=== PATIENT | female | born 1965 | race Caucasian/White ===

== ENCOUNTER 2016-10-15 13:17 | Emergency (ER) | payer OTHER ==
[~2016-10-15] VITALS: Ht 170.2 cm; Wt 54.4 kg
[2016-10-15 14:42] LABS: ABSOLUTE BASOPHIL COUNT 0 /CUMM (0.0-0.2); ABSOLUTE EOSINOPHIL COUNT 0 /CUMM (0.0-0.7); ABSOLUTE GRANULOCYTE CT 3.6 /CUMM (1.4-6.5); ABSOLUTE LYMPH COUNT 1.2 /CUMM (1.2-3.4); ABSOLUTE MONOCYTE COUNT 0.4 /CUMM (0.10-0.60); BASOPHIL % 0.7 % (0.0-2.0); EOSINOPHIL % 0.7 % (0-5); MEAN CORPUSCULAR HGB CONC 33.6 G/DL (33.0-37.0); MEAN CORPUSCULAR VOLUME 104.3 FL (81.0-99.0); MEAN PLATELET VOLUME 6.9 FL (7.4-10.4); PLATELET COUNT 187 /CUMM (130-400); RBC DISTRIBUTION WIDTH 13.9 % (11.5-14.5); RED BLOOD CELL CT 3.64 /CUMM (4.20-5.40); WHITE BLOOD CELL COUNT 5.2 /CUMM (4.8-10.8)
[2016-10-15] MEDS ORDERED: LAMOTRIGINE150 M1 PO (17:07)
[2016-10-15] MEDS ORDERED: GABAPENTIN300 M2 PO (17:07)
[2016-10-15] MEDS ORDERED: NALTREXONE HCL50 M1 PO (17:08)
[2016-10-15] MEDS ORDERED: HYDROXYZINE PAM50 M1 (17:08)
[2016-10-15] MEDS ORDERED: MULTI-DAY VITA1 EACH PO (17:08)
[2016-10-15] MEDS ORDERED: CLONIDINE HCL0.1 MG (17:09)
--- NOTE | 2016-10-15 18:47 | ED GENERAL ADULT ---
See Addendum History of Present Illness General Chief Complaint: ETOH/Drug Related Complaint Stated Complaint: REQUESTING DETOX Source: patient Exam Limitations: no limitations Vital Signs & Intake/Output Vital Signs & Intake/Output Vital Signs Date Time Temp Pulse Resp B/P B/P Pulse O2 O2 Flow FiO2 Mean Ox Delivery Rate 10/17 923 98.2 70 18 132/71 10/16 0924 98.2 70 18 132/71 100 Room Air 10/16 0644 98.1 65 16 135/73 100 Room Air 10/16 0442 97.2 82 18 138/70 97 Room Air 10/16 0441 97.2 82 18 138/70 10/15 2355 97.8 69 18 1317/75 10/15 2355 97.8 69 18 137/75 97 Room Air 10/15 2100 97.3 75 18 139/87 10/15 2056 97.3 75 18 139/87 98 Room Air 10/15 1937 98.3 70 22 140/90 10/15 1936 98.3 70 22 140/90 Room Air 10/15 1808 98.6 79 16 139/76 10/15 1734 98.6 79 16 139/76 96 Room Air 10/15 1525 98.2 65 16 146/83 10/15 1522 98.2 65 16 146/83 100 Room Air 10/15 1324 98.8 80 18 158/95 99 Room Air ED Intake and Output 10/16 0000 10/15 1200 Intake Total 1000 Output Total Balance 1000 Intake, IV 1000 Patient 120 lb Weight Allergies Coded Allergies: No Known Allergies (10/15/16) Reconcile Medications Clonidine HCl (Unknown Strength) TABLET (Unknown Dose) UNKNOWN (Reported) Gabapentin 300 MG CAPSULE 1 CAP PO TID ANTI-SEIZURES (Reported) Hydroxyzine Pamoate (Unknown Strength) CAPSULE (Unknown Dose) UNKNOWN ( Reported) Lamotrigine 150 MG TABLET 1 TAB PO DAILY MENTAL HEALTH (Reported) Multivitamin (Multi-Day Vitamins) 1 EACH TABLET 1 TAB PO DAILY SUPPLEMENT ( Reported) Naltrexone HCl 50 MG TABLET 1 TAB PO SI SUBSTANCE ABUSE (Reported) Triage Note: 51 YEAR OLD FEMALE SENT TO ER BY [facility] IN [facility] TO HAVE MEDICAL CLEARANCE. PT STATES THAT SHE WAS TOLD THAT WE WILL WATCH HER OVER NIGHT AND THEY WILL PICK HER UP IN THE AM. PATIENTS LAST DETOX WAS ABOUT 1 MONTH AGO AND WAS THERE FOR 21 DAYS AND SHE STARTED TO DRINK RIGHT AFTER DISCHARGE. DENIES HISTORY OF SEIZURES/SI/HI OR DRUG USE. LAST DRINK WAS WINE AROUND 0600 THIS AM. STATES THAT WHEN SHE DOESN'T DRINK SHE FEELS SHAKEY. COMPLAINS OF SLIGHT NAUSEA AT THIS TIME. PT BROUGHT TO ER BY HER AA SPONSOR Triage Nurses Notes Reviewed? yes HPI: 51 yo F PMH EtOH abuse presenting for detox. Recently admitted for detox, released at the end of 08/2016, quickly relapsed, since that time she's been drinking several bottles of wine and unclear amount of hard alcohol daily, last drink this morning at 6:00. Patient initially presented to outpatient detox center, intoxicated, concern for complicated withdrawal with high benzodiazepine requirements, sent to ED for evaluation and further management. On arrival patient endorsing mild anxiety and tremors, denies chest pain, shortness of breath, palpitations. Denies other illicit drug use. Denies SI, plan, intent. Endorses history of tremors with alcohol cessation, denies prior alcohol withdrawal seizures. (JAYLON FLYNN MD) Past History Travel History Traveled to [place] past 21 day No Medical History Any Pertinent Medical History? see below for history Neurological: NONE EENT: NONE Cardiovascular: NONE Respiratory: NONE Gastrointestinal: NONE Hepatic: NONE Renal: NONE Musculoskeletal: NONE Psychiatric: alcohol dependence, anxiety, depression Endocrine: NONE Blood Disorders: NONE Cancer(s): NONE PUBLIC HEALTH DOCTOR/Reproductive: NONE Surgical History Surgical History: none Psychosocial History What is your primary language Kyrgyz Tobacco Use: Never used ETOH Use: alcoholic Illicit Drug Use: denies illicit drug use Family History Hx Contributory? Yes (JAYLON FLYNN MD) Review of Systems Review of Systems Constitutional: Reports: malaise, weakness. EENTM: Reports: no symptoms. Respiratory: Reports: no symptoms. Cardiovascular: Reports: no symptoms. GI: Reports: nausea. Denies: abdominal pain, diarrhea, melena, vomiting. Genitourinary: Reports: no symptoms. Musculoskeletal: Reports: no symptoms. Skin: Reports: no symptoms. Neurological/Psychological: Reports: anxiety. Hematologic/Endocrine: Reports: no symptoms. Immunologic/Allergic: Reports: no symptoms. All Other Systems: Reviewed and Negative (JAYLON FLYNN MD) Physical Exam Physical Exam General Appearance: well developed/nourished, no apparent distress, alert, awake , anxious Head: atraumatic, normal appearance Eyes: Bilateral: normal appearance. Ears, Nose, Throat: normal pharynx, normal ENT inspection Neck: normal inspection, full range of motion Respiratory: normal breath sounds, no respiratory distress, quiet respiration Cardiovascular: regular rate/rhythm, normal peripheral pulses Gastrointestinal: normal bowel sounds, soft, non-tender Back: normal inspection Comments: Neurologic: Tremors of bilateral upper extremities, tongue fasciculations Psychiatric: Endorses anxiety, denies suicidal ideation Core Measures ACS in differential dx? No CVA/TIA Diagnosis: No Severe Sepsis Present: No Septic Shock Present: No (GEE FABIAN,JAYLON) Progress Differential Diagnoses I considered the following diagnoses in my evaluation of the patient: [alcohol intoxication, alcohol withdrawal, dehydration] Plan of Care: Orders Procedure Date/time Status Regular Diet 10/15 D Active CASE MANAGEMENT CONSULT 10/15 1643 Active URINE DRUG SCREEN FOR ER ONLY 10/15 1457 Complete Pathway - chart 10/15 1411 Active CIWA 10/15 1411 Active MAGNESIUM 10/15 1411 Complete ETHANOL 10/15 1411 Complete COMPREHENSIVE METABOLIC PANEL 10/15 1411 Complete CBC WITHOUT DIFFERENTIAL 10/15 1411 Complete Current Medications Sig/Flora Start time Last Medication Dose Stop Time Status Admin Lorazepam 2 MG Q2P PRN 10/15 1415 AC 10/15 (Ativan) 1949 Lorazepam 1 MG Q2P PRN 10/15 1415 AC 10/16 (Ativan) 0441 Folic Acid 1 MG DAILY 10/15 1411 UNVr 10/15 (Folic Acid) 10/17 1001 1500 Multivitamins 1 TAB DAILY 10/15 1411 UNVr 10/15 (Theragran Vitamins) 1500 Thiamine HCl 100 MG DAILY 10/15 1411 UNVr 10/15 (Vitamin B1) 10/17 1001 1500 Laboratory Tests 10/15/16 1458: Urine Opiates Screen < 100.00, Methadone Screen < 40, Barbiturate Screen < 60, Ur Phencyclidine Scrn < 6.00, Amphetamines Screen < 100, U Benzodiazepines Scrn < 85, Urine Cocaine Screen < 50, Urine Cannabis Screen < 5.00 10/15/16 1436: Anion Gap 14, Estimated GFR > 60, BUN/Creatinine Ratio 26.7 H, Glucose 91, Calcium 8.7, Magnesium 1.7, Total Bilirubin 0.6, AST 38 H, ALT 29, Alkaline Phosphatase 56, Total Protein 7.0, Albumin 4.5, Globulin 2.5, Albumin/Globulin Ratio 1.8, CBC w Diff NO MAN DIFF REQ, RBC 3.64 L, MCV 104.3 H, MCH 35.0 H, RDW 13.9, MPV 6.9 L, Gran % 69.0, Lymphocytes % 22.4, Monocytes % 7.2, Eosinophils % 0.7, Basophils % 0.7, Absolute Granulocytes 3.6, Absolute Lymphocytes 1.2, Absolute Monocytes 0.4, Absolute Eosinophils 0, Absolute Basophils 0, PUBS MCHC 33.6, Serum Alcohol 94.0 Physician MDM: 51 yo F PMH EtOH abuse presenting for detox. On arrival VSS, HR and BP normal, tremors on exam. CBC, CMP, lipase remarkable for mild AST elevation, otherwise normal. 1 L normal saline, 2 mg IV Ativan given. CIWA protocol ordered, PO Ativan based. Plan to monitor emergency department overnight for significant withdrawal symptoms, if low CIWA scores and low benzodiazepine requirements, plan for referral to outpatient detox tomorrow. The plan of care was discussed with the patient and who expressed agreement and understanding. (JAYLON FLYNN MD) Initial ED EKG: normal sinus rhythm (JAYLON FLYNN MD) Differential Diagnoses I considered the following diagnoses in my evaluation of the patient: Comments: 10/16/2016 7:16:39 AM patient signed out to me by Dr. 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 10/16/2016 9:44:03 AM patient's last CIWA score is 0. I feel she is stable for treatment via [facility]. (TAY FITCH MD) Departure Departure Clinical Impression Primary Impression: Alcohol withdrawal Qualifiers: Complication of substance-induced condition: uncomplicated Qualified Code: F10.230 - Alcohol dependence with withdrawal, uncomplicated Referrals: PATIENT HAS NO PRIMARY CARE DR (PCP/Family) Departure Forms: Customer Survey General Discharge Information (JAYLON FLYNN MD) Departure Comments 10/16/16 3 AM The patient was signed out to me by Dr. Reyes. She will have her CIWA scores reevaluated during the morning. If stable she will be discharged and may go to [facility]. (TAY CARMEN DO) Departure Disposition: ACUTE REHAB FACILITY Condition: Stable Additional Instructions: Report immediately to [facility]. (TAY FITCH MD) PA/ETHYLBENZENE CRACKING SUPERVISOR Co-Sign Statement Statement: ED Attending supervision documentation- [] I saw and evaluated the patient. I have also reviewed all the pertinent lab results and diagnostic results. I agree with the findings and the plan of care as documented in the PA's/ETHYLBENZENE CRACKING SUPERVISOR's documentation. [X] I have reviewed the ED Record and agree with the PA's/ETHYLBENZENE CRACKING SUPERVISOR's documentation. [] Additions or exceptions (if any) to the PAs/ETHYLBENZENE CRACKING SUPERVISOR's note and plan are summarized below: [] (JORGE FABIAN,CARIE) Critical Care Note Critical Care Note Critical Care Time: non-applicable (GEE FABIAN,JAYLON)
[2016-10-16 10:43] VITALS: BP 126/84
== END 2016-10-16 10:43 ==
LOC: ERH 13:17
PROVIDERS: Student in an Organized Health Care Education/Training Program
DX: F10.239 Alcohol dependence with withdrawal, unspecified (principal); F41.9 Anxiety disorder, unspecified; G25.1 Drug-induced tremor
CPT/HCPCS: 80307; 96374; G0480; J3490